=== PATIENT | female | born 1995 | race Caucasian/White ===

== ENCOUNTER 2020-10-06 18:45 | Emergency (ER) | payer OTHER, SELFPAY ==
[2020-10-06 18:44] VITALS: BP 128/78; PULSE 100; RESP 18; TEMP 36.2; O2SAT 100
[2020-10-06 19:36] LABS: Basophils Percent Auto 0.4 % (0.2-1.2); Eosinophils Absolute Auto 0.2 K/mm3 (0-0.3); Eosinophils Percent Auto 1.7 % (0-4.4); Hematocrit 40.8 % (37.0-47.0); Hemoglobin 13.6 g/dL (12.0-15.0); Immature Granulocyte Absolute 0.06 K/mm3 (0.00-0.031); Immature Granulocyte Percent A 0.5 % (0-0.5); Lymphocytes Percent Auto 11.7 % (18.3-44.2); Mean Corpuscular HGB Conc 33.3 g/dl (32-36); Mean Corpuscular Hemoglobin 31.7 pg (26-34); Mean Corpuscular Volume 95.1 fl (80-100); Monocytes Absolute Auto 0.9 K/mm3 (0.1-0.6); Monocytes Percent Auto 8.1 % (2.6-8.5); Neutrophils Absolute Auto 8.6 K/mm3 (1.3-6.7); Neutrophils Percent Auto 77.6 % (45.5-73.1); Platelet Count Result 315 k/mm3 (150-375); Red Blood Count 4.29 M/mm3 (4.2-5.4); Red Cell Distribution Width 12.3 % (11.5-14.5); White Blood Count 11.1 K/mm3 (4.5-10.0)
[2020-10-06 19:47] LABS: Ethanol < 10 mg/dL (<10)
[2020-10-06 19:50] LABS: Alanine Aminotransferase 18 U/L (4-35); Albumin Level 4.4 g/dL (3.5-5.1); Alkaline Phosphatase 81 U/L (38-126); Anion Gap 6 mmol/L (8-16); Aspartate Amino Transferase 28 U/L (14-36); Bilirubin,Total 0.3 mg/dL (0.2-1.3); Blood Urea Nitrogen 14 mg/dL (7-17); Calcium 8.7 mg/dL (8.4-10.2); Carbon Dioxide 28 mmol/L (22-30); Chloride 104 mmol/L (98-107); Estimated CRCL calculation 99 ml/min; Estimated Glomerular Filt Rate > 60; Glucose 81 mg/dL (65-105); Sodium 138 mmol/L (137-145)
[2020-10-06 20:10] LABS: Add Urine Microscopic? YES; Appearance Urine Cloudy (Clear); Bilirubin Urine Negative (Negative); Blood Urine Negative (Negative); Glucose Urine UA Negative (Negative); Ketones Urine 1+ mg/dL (Negative); Leukocyte Esterase Ur Trace LEU/UL (Negative); Nitrate Urine Negative (Negative); Protein Urine Trace mg/dL (Negative); Specific Grav Ur 1.025 (1.001-1.035); Urobilinogen Urine 0.2 mg/dL (<2.0)
[2020-10-06 20:12] LABS: Barbiturate Screen Urine Negative (Negative); Benzodiazepines Screen Urine Negative (Negative)
[2020-10-06] MEDS: LORazepam INJ (*CRX) 2 MG/ML VIAL 1 MG IV PUSH (20:12)
[2020-10-06 20:13] LABS: Color Urine Yellow (Yellow)
[2020-10-06 20:18] LABS: Cannabinoid Screen Urine Positive (Negative); Cocaine Screen Urine Negative (Negative); Methadone Screen Urine Negative (Negative); Opiate Screen Urine Negative (Negative); Phencyclidine Screen Urine Negative (Negative)
--- NOTE | 2020-10-06 20:24 | ED.GENADULT ---
HPI - General Adult General Chief complaint: Anxiety <JED Augustine Last Filed: 10/06/20 21:07> Stated complaint: anxiety <JED Augustine Last Filed: 10/06/20 21:07> Time Seen by Provider: 10/06/20 21:05 <JED Augustine Last Filed: 10/06/20 21:07> Source: patient <JED Augustine Last Filed: 10/06/20 21:07> Mode of arrival: ambulatory <JED Augustine Last Filed: 10/06/20 21:07> Limitations: no limitations <JED Augustine Last Filed: 10/06/20 21:07> History of Present Illness HPI narrative: Patient is a 25-year-old female who presents for EMS for evaluation of having gotten an argument with her partner at which time she threatened to harm herself and had a razor in her hand her dad was present at this time patient put the razor down EMS was contacted and police and she was brought in for evaluation on arrival patient denying any suicidal homicidal ideation. Patient notes that she was upset due to the argument with her girlfriend. Patient lives with her girlfriend and her father. Patient on arrival notes anxiety but has no other complaints at this time and is resting comfortably in the room in no distress. Patient has been compliant with her psych medications. Patient has a new therapist who she does like. Patient feels safe at home <JED Augustine Last Filed: 10/06/20 21:07> Related Data Home medications: Home Medications Medication Instructions Recorded Confirmed Depakote 10/06/20 amitriptyline 50 mg PO HS 10/06/20 aripiprazole [Abilify] 10 mg PO DAILY 10/06/20 <JED Augustine Last Filed: 10/06/20 21:07> Allergies/adverse reactions: Allergies Allergy/AdvReac Type Severity Reaction Status Date / Time metoclopramide Allergy Unknown Vomiting Verified 10/06/20 18:49 nitrofurantoin Allergy Unknown Vomiting Verified 10/06/20 18:49 <JED Augustine Last Filed: 10/06/20 21:07> Review of Systems Review of Systems: All systems reviewed & are unremarkable except as noted in HPI and below <Nicola Pickens PA-C - Last Filed: 10/06/20 21:07> [facility] Past Medical History Medical History: Medical History (Updated 10/06/20 @ 20:28 by Nicola Pickens PA-C) Anxiety Depression <Nicola Pickens PA-C - Last Filed: 10/06/20 21:07> Social History Social History: Social History (Updated 10/06/20 @ 20:28 by Nicola Pickens PA-C) Smoking status: Current every day smoker Alcohol intake: former <Nicola Pickens PA-C - Last Filed: 10/06/20 21:07> Exam Narrative: Exam Narrative: GENERAL: Well-appearing, well-nourished, and in no acute distress. HEAD: Normocephalic, atraumatic. EYES: PERRLA and EOMI. ENT: Nares clear, no rhinorrhea or epistaxis. Mucous membranes moist. CHEST: Clear to auscultation. No respiratory distress. No wheezes rales or rhonchi HEART: Regular rate and rhythm. No murmur heard. Normal peripheral pulses. ABDOMEN: Soft, nontender, nondistended EXTREMITIES: Normal range of motion. No edema. SKIN: Warm, dry, no rash. NEURO: No focal deficits. Alert and oriented x3. PSYCH: Patient acutely anxious with normal affect <Nicola Pickens PA-C - Last Filed: 10/06/20 21:07> Course Course Emergency Course: Patient evaluated the emergency department resting comfortably patient in my opinion is felt safe for discharge home family feels comfortable taking her home patient has been cooperative and relaxed. Patient pending evaluation by crisis my attending Dr. Martinez will resume case from this point forward timestamp [id number] <Nicola Pickens PA-C - Last Filed: 10/06/20 21:07> Patient has been evaluated by crisis the patient was cleared for outpatient follow-up and was able to safety plan <Tanner Martinez MD - Last Filed: 10/06/20 22:31> Vital Signs Vital signs: Vital Signs Temperature 36.2 C L 10/06/20 18:44 Pu
[2020-10-06 20:39] LABS: Amphetamine Screen Urine Positive (Negative)
[2020-10-06 20:59] VITALS: BP 90/60; PULSE 81; RESP 18; O2SAT 98
[2020-10-06 22:39] VITALS: BP 105/73; PULSE 93; RESP 18; O2SAT 100
== END 2020-10-06 22:55 | disposition home or self-care (01) ==
PROVIDERS: Emergency Medicine Emergency Medical Services; Emergency Provider Emergency Medicine; PCP Family Medicine
DX: F41.9 Anxiety disorder, unspecified (principal); F32.9 Major depressive disorder, single episode, unspecified; F17.200 Nicotine dependence, unspecified, uncomplicated
CPT/HCPCS: 36415; 80053; 80307; 81001; 81025; 84443; 85025; 96374; 99284; J2060